=== PATIENT | male | born 1955 | race Caucasian/White ===

== ENCOUNTER 2017-03-27 10:41 | Day surgery (SDC) | payer OTHER ==
[~2017-03-27] VITALS: Ht 185.4 cm; Wt 88.0 kg
[~2017-03-27 10:41] MED LIST: ADULT LOW DOSE81 MG PO; ALLOPURINOL100 MG PO; COLCHICINE0.6 M4 PO; CRESTOR10 MG PO; DOXAZOSIN MESYLA2 MG PO; FERROUS SULFAT325 M2 PO; LIPITOR10 MG PO; LISINOPRIL2.5 MG PO; MEDROL 4MG. DOSE4 MG PO; Sodium Bicarbo650 MG NG; ULORIC40 MG PO
--- NOTE | 2017-03-27 13:12 | Operative Note ---
Colonoscopy ([facility]) Procedure date: 03/27/17 Date of : 59 Procedure:Colonoscopy Colonoscopy with cold biopsy Indications: Mr. Gavin is a 61-year-old gentleman who is here for follow-up screening/ surveillance colonoscopy. He does state that he had a colonoscopy 10 years ago which was normal. His maternal grandfather either had colon or prostate cancer. He reports no abdominal pain, weight loss, change in his bowel habits or rectal bleeding. He reports no other family history of colon cancer. His recent PSA and prostate testing was normal. Performing Provider: Anurag Hansen MD Referrring Provider: Zi Katz M.D. Sedation: MAC sedation Procedure: Prior to the procedure, a history and physical exam was performed, and patient medications and allergies were reviewed. The risks and benefits of the procedure and the sedation options and risks were discussed with the patient. All questions were answered and informed consent was obtained. Patient identification and proposed procedure were verified by the physician and the nurse. The patient was placed in a left lateral decubitus position. Throughout the procedure, the patient's blood pressure, pulse, and oxygen saturations were monitored continuously. Findings: On digital rectal examination there was normal rectal tone. There were no external hemorrhoids. The prostate was 2+, smooth, soft, symmetric without nodules. The colonoscope was introduced through the anal canal to the rectum and advanced to the cecum. The ileocecal valve and appendiceal orifice were identified. The scope was advanced a short distance into the ileum which appeared grossly normal. The scope was then withdrawn into the colon. The cecum, ascending, transverse, descending, sigmoid and rectum were grossly normal. There was a single diminutive 4 mm polyp in the descending colon removed via cold biopsy. There were no mucosal abnormalities identified. Upon retroflexion within the rectum there were grade 1 internal hemorrhoids. Impressions: 1. Diminutive descending polyp 2. Grade 1 internal hemorrhoids Recommendations: I will follow up the polyp pathology and recommend repeat colonoscopy again in 5 -10 years based upon the polyp histology. I would encourage fiber supplementation on a long-term daily maintenance basis. Complications: None EBL (ml): 0 at 1311
[2017-03-27 14:05] VITALS: BP 113/70
== END 2017-03-27 13:45 | disposition home or self-care (01) ==
LOC: SDC 10:41
PROVIDERS: Internal Medicine Gastroenterology
PROC: 0DBM8ZX Excision of Descending Colon, Via Natural or Artificial Opening Endoscopic, Diagnostic (ICD-10-PCS; principal; 2017-03-27 12:00)
DX: Z12.11 Encounter for screening for malignant neoplasm of colon (principal); D12.4 Benign neoplasm of descending colon; K64.0 First degree hemorrhoids; Z80.9 Family history of malignant neoplasm, unspecified; Z79.82 Long term (current) use of aspirin; Z79.52 Long term (current) use of systemic steroids; Z79.899 Other long term (current) drug therapy

== ENCOUNTER 2017-05-23 13:34 | Day surgery (SDC) | payer OTHER ==
[~2017-05-23] VITALS: Ht 185.4 cm; Wt 90.7 kg
[2017-05-23 13:55] VITALS: BP 115/78
[2017-05-23 14:28] VITALS: BP 115/78
[2017-05-23 14:30] VITALS: BP 124/76
--- NOTE | 2017-05-23 14:35 | Procedure Note ---
Procedure detail Date of procedure: 05/23/17 Anesthesiologist: Juan Diego Guardado Complications: None Pre-procedure diagnosis: Degenerative disease lumbar spine multiple lumbar radiculopathy symptoms. Post-procedure diagnosis: Same. Indications for procedure: Very pleasant 61-year-old white male that has responded very well to previous lumbar epidural steroid injection at the L4-5 level. He presents today for a therapeutic injection at the L4-5 level. He describes his low back pain as constant, dull, aching. He rates the pain 5/10. Procedure detail: Procedure: Lumbar epidural steroid injection under fluoroscopy Informed consent was obtained and the risks and benefits of the procedure were explained to the patient. The patient was taken to the procedure room and noninvasive monitors placed, including noninvasive blood pressure cuff and pulse oximeter. The back was viewed using C-arm Fluoroscopy and prepped using Betadine as a cleansing solution and the L4-L5 interspace was palpated. Skin and subcutaneous tissues were anesthetized using lidocaine 1.5% and a 25-gauge needle. After this, an 18-gauge Touhy epidural needle was placed into the L4-L5 interspace and advanced using fluoroscopic guidance and loss of resistance to air until the epidural space was encountered. After confirmation of needle placement in the epidural space, with dye, a solution containing lidocaine 1.5%, 4 mL and Depo-Medrol 80 mg were incrementally injected into the lumbar epidural space. The patient tolerated the procedure well with no complications. The patient was observed in the Pain Clinic and then discharged home neurologically intact. Plan and disposition: Patient was evaluated 10 minutes post procedure. He's doing very well. Return to see us in the pain clinic for further evaluation. at [phone]
[2017-05-23 14:40] VITALS: BP 120/72
== END 2017-05-23 14:35 | disposition home or self-care (01) ==
LOC: PM 13:34
PROC: 3E0R3BZ Introduction of Anesthetic Agent into Spinal Canal, Percutaneous Approach (ICD-10-PCS; principal; 2017-05-23)
PROC: 3E0R33Z Introduction of Anti-inflammatory into Spinal Canal, Percutaneous Approach (ICD-10-PCS; 2017-05-23)
PROC: B01B1ZZ Fluoroscopy of Spinal Cord using Low Osmolar Contrast (ICD-10-PCS; 2017-05-23)
DX: M51.16 Intervertebral disc disorders with radiculopathy, lumbar region (principal)
CPT/HCPCS: J1040; Q9966